=== PATIENT | male | born 1940 | race Two or more races ===

== ENCOUNTER 2019-02-13 08:43 | Inpatient (IN) | payer OTHER, MEDICARE | END 2019-02-27 16:50 | disposition home or self-care (01) | LOC: ICU WEST 02-19 00:30 → ER 08:43 → TELE-CENTR 02-14 00:32 → OVERFLOW 08:44 → TELE-CENTR 23:50 | PROC: B3151ZZ Fluoroscopy of Bilateral Common Carotid Arteries using Low Osmolar Contrast (ICD-10-PCS; principal; 2019-02-19 06:01) | PROC: B31R1ZZ Fluoroscopy of Intracranial Arteries using Low Osmolar Contrast (ICD-10-PCS; 2019-02-19 06:01) | PROC: B31K1ZZ Fluoroscopy of Bilateral Upper Extremity Arteries using Low Osmolar Contrast (ICD-10-PCS; 2019-02-19 06:01) | PROC: 02100Z9 Bypass Coronary Artery, One Artery from Left Internal Mammary, Open Approach (ICD-10-PCS; 2019-02-19 06:01) | PROC: 021209W Bypass Coronary Artery, Three Arteries from Aorta with Autologous Venous Tissue, Open Approach (ICD-10-PCS; 2019-02-19 06:01) | PROC: 06BQ0ZZ Excision of Left Saphenous Vein, Open Approach (ICD-10-PCS; 2019-02-19 06:01) | PROC: 06BP0ZZ Excision of Right Saphenous Vein, Open Approach (ICD-10-PCS; 2019-02-19 06:01) | PROC: 5A1935Z Respiratory Ventilation, Less than 24 Consecutive Hours (ICD-10-PCS; 2019-02-19 06:01) | PROC: 30233N1 Transfusion of Nonautologous Red Blood Cells into Peripheral Vein, Percutaneous Approach (ICD-10-PCS; 2019-02-19 06:01) | DX: I21.4 Non-ST elevation (NSTEMI) myocardial infarction (principal); I67.2 Cerebral atherosclerosis; E78.5 Hyperlipidemia, unspecified; E11.65 Type 2 diabetes mellitus with hyperglycemia; E11.9 Type 2 diabetes mellitus without complications; I25.10 Atherosclerotic heart disease of native coronary artery without angina pectoris; Z95.1 Presence of aortocoronary bypass graft ==

== ENCOUNTER 2020-05-18 15:56 | Emergency (ER) | payer OTHER ==
[~2020-05-18 15:56] MED LIST: ATOR20TA PO; METF-370 PO
[2020-05-18 17:03] LABS: Basophils # (auto) 0 10 ^3/uL (0-0.2); Basophils % (auto) 0.3 % (0.0-2.0); Eosinophils # (auto) 0 10 ^3/uL (0-0.8); Hematocrit 44.7 % (41.0-53.0); Hemoglobin 15.4 g/dL (13.5-17.5); Lymphocytes # (auto) 0.6 10 ^3/uL (0.4-5.4); Lymphocytes % (auto) 15.5 % (10.0-50.0); Mean Corpuscular Hemoglobin 31.6 pg (28.0-32.0); Mean Corpuscular Hgb Conc. 34.5 g/dL (32.0-36.0); Mean Corpuscular Volume 91.8 fL (80.0-100.0); Monocytes # (auto) 0.4 10 ^3/uL (0-1.3); Monocytes % (auto) 9.4 % (0.0-12.0); Neutrophils # (auto) 2.9 10 ^3/uL (1.6-8.6); Neutrophils % (auto) 74.8 % (37.0-80.0); Nucleated Red Blood Cells % 0.1 %; Platelet Count (auto) 168 10^3/uL (140-450); Red Blood Cells 4.87 10^6/uL (4.5-5.90); Red Cell Distribution Width 13.6 % (11.8-14.3); White Blood Cell 3.9 10^3/uL (4.4-10.8)
[2020-05-18 17:25] LABS: Albumin 3.6 g/dL (3.4-5.0); Anion Gap 7 (5-15); Blood Urea Nitrogen 24 mg/dL (7-18); Calcium 8.4 mg/dL (8.5-10.1); Carbon Dioxide 29 mmol/L (21-32); Chloride 91 mmol/L (98-107); Glucose 321 mg/dL (74-106); Magnesium 2.5 mg/dL (1.6-2.6); Potassium 4.5 mmol/L (3.5-5.1); Sodium 127 mmol/L (136-145)
[2020-05-18 17:32] LABS: Alanine Aminotransferase 30 U/L (16-61); Alkaline Phosphatase 63 U/L (45-117); Aspartate Aminotransferase 30 U/L (15-37); BUN/Creatinine Ratio 15.7; Bilirubin, Total 0.6 mg/dL (0.2-1.0); GFR African American 57 mL/min; GFR Non-African American 47 mL/min; Total Protein 7.5 g/dL (6.4-8.2)
[2020-05-18 18:06] VITALS: BP 99/65
[2020-05-18] MEDS ORDERED: TETANUS-DIPTH-ACEL PERTUSSIS 0.5ML SYR Tdap IM ONE (18:30)
[2020-05-18] MEDS ORDERED: BACITRACIN TOP OINT 1 UD PKG TOP ONE (18:30)
== END 2020-05-18 19:19 | disposition home or self-care (01) ==
LOC: ER 15:56
DX: S00.81XA Abrasion of other part of head, initial encounter (principal); E11.65 Type 2 diabetes mellitus with hyperglycemia; E11.21 Type 2 diabetes mellitus with diabetic nephropathy; E11.9 Type 2 diabetes mellitus without complications; I10 Essential (primary) hypertension; W19.XXXA Unspecified fall, initial encounter; Y93.89 Activity, other specified; Y92.89 Other specified places as the place of occurrence of the external cause; Y99.8 Other external cause status
CPT/HCPCS: 36415; 70450; 71046; 72125; 80053; 82962; 83735; 84484; 85025; 90471; 90715

== ENCOUNTER 2020-05-21 15:21 | Inpatient (IN) | payer MEDICARE, OTHER ==
[~2020-05-21] VITALS: Ht 167.6 cm; Wt 88.1 kg
[2020-05-21 17:02] LABS: Basophils # (auto) 0 10 ^3/uL (0-0.2); Basophils % (auto) 0.3 % (0.0-2.0); Eosinophils # (auto) 0 10 ^3/uL (0-0.8); Hematocrit 40.2 % (41.0-53.0); Hemoglobin 13.7 g/dL (13.5-17.5); Lymphocytes # (auto) 0.6 10 ^3/uL (0.4-5.4); Lymphocytes % (auto) 9.9 % (10.0-50.0); Mean Corpuscular Hemoglobin 31.2 pg (28.0-32.0); Mean Corpuscular Hgb Conc. 34.2 g/dL (32.0-36.0); Mean Corpuscular Volume 91.2 fL (80.0-100.0); Monocytes # (auto) 0.4 10 ^3/uL (0-1.3); Monocytes % (auto) 7.3 % (0.0-12.0); Neutrophils # (auto) 5.1 10 ^3/uL (1.6-8.6); Neutrophils % (auto) 82.5 % (37.0-80.0); Nucleated Red Blood Cells % 0.1 %; Platelet Count (auto) 217 10^3/uL (140-450); Red Cell Distribution Width 13.5 % (11.8-14.3); White Blood Cell 6.1 10^3/uL (4.4-10.8)
[2020-05-21 17:16] LABS: INR 1.03 (0.9-1.15); Partial Thromboplastin Time 28.2 sec (23.0-31.2)
[2020-05-21 17:19] LABS: Albumin 2.9 g/dL (3.4-5.0); Anion Gap 8 (5-15); Calcium 8.1 mg/dL (8.5-10.1); Carbon Dioxide 25 mmol/L (21-32); Chloride 97 mmol/L (98-107); Glucose 289 mg/dL (74-106); Magnesium 2.4 mg/dL (1.6-2.6); Potassium 4.5 mmol/L (3.5-5.1); Sodium 130 mmol/L (136-145)
[2020-05-21 17:25] LABS: Alanine Aminotransferase 35 U/L (16-61); Alkaline Phosphatase 54 U/L (45-117); Aspartate Aminotransferase 45 U/L (15-37); Bilirubin, Total 0.7 mg/dL (0.2-1.0); GFR African American 73 mL/min; GFR Non-African American 60 mL/min; Total Protein 6.8 g/dL (6.4-8.2)
[2020-05-21 17:53] LABS: BUN/Creatinine Ratio 23.6; Blood Urea Nitrogen 29 mg/dL (7-18)
[2020-05-21] MEDS ORDERED: levoFLOXacin 750MG 150 ML IV ONE (21:45)
[2020-05-21] MEDS ORDERED: ACETAMINOPHEN 325 MG TAB PO ONE (21:45)
[2020-05-21] MEDS ORDERED: SODIUM CHLORIDE 0.9% 1,000 ML IV ONE (21:45)
[2020-05-22 01:21] LABS: Urine Bacteria NONE SEEN /hpf (None Seen); Urine Blood 2+ /uL (Negative); Urine Mucus FEW (None Seen); Urine Specific Gravity 1.028 (1.001-1.035); Urine WBC 1 /hpf (0 - 3)
[2020-05-22] MEDS ORDERED: DOCUSATE SOD 100 MG CAP PO PRN (03:30)
[2020-05-22] MEDS ORDERED: NITROGLYCERIN 0.4 MG SL TAB SL PRN (03:30)
[2020-05-22] MEDS ORDERED: MORPHINE SULF INJ 2 MG/ML SYRINGE 1ML IV PRN (03:30)
[2020-05-22] MEDS ORDERED: ONDANSETRON HCL 4 MG/2 ML VIAL IV PRN (03:30)
[2020-05-22] MEDS ORDERED: DEXTROSE (50%) 50ML SYRG IV PRN (03:45)
[2020-05-22] MEDS: DOXYCYCLINE 100MG/250ML 250 ML IV SCH ×2 (03:49→21:27)
[2020-05-22] MEDS: DexAMETHasone SOD PHOS 10MG/1ML VIAL INJ IV SCH (03:50)
[2020-05-22 04:41] LABS: Basophils # (auto) 0 10 ^3/uL (0-0.2); Basophils % (auto) 0.5 % (0.0-2.0); Eosinophils # (auto) 0 10 ^3/uL (0-0.8); Eosinophils % (auto) 0.2 % (0.0-7.0); Lymphocytes # (auto) 0.8 10 ^3/uL (0.4-5.4); Lymphocytes % (auto) 13.3 % (10.0-50.0); Mean Corpuscular Hemoglobin 32.6 pg (28.0-32.0); Mean Corpuscular Volume 90.7 fL (80.0-100.0); Monocytes # (auto) 0.4 10 ^3/uL (0-1.3); Monocytes % (auto) 6.1 % (0.0-12.0); Neutrophils # (auto) 4.6 10 ^3/uL (1.6-8.6); Neutrophils % (auto) 79.9 % (37.0-80.0); Nucleated Red Blood Cells % 0.1 %; Platelet Count (auto) 210 10^3/uL (140-450); Red Cell Distribution Width 13.4 % (11.8-14.3); White Blood Cell 5.8 10^3/uL (4.4-10.8)
[2020-05-22 04:59] LABS: Albumin 2.6 g/dL (3.4-5.0); Calcium 8.1 mg/dL (8.5-10.1); Magnesium 2.4 mg/dL (1.6-2.6); Potassium 4.2 mmol/L (3.5-5.1)
[2020-05-22 05:01] LABS: BUN/Creatinine Ratio 20.4
[2020-05-22 05:04] LABS: Bilirubin, Total 0.6 mg/dL (0.2-1.0); Total Protein 6.8 g/dL (6.4-8.2)
[2020-05-22] MEDS: ACCU-CHEK COMFORT CURVE STRIP VI SCH ×4 (06:34→21:35)
[2020-05-22] MEDS: InsuLIN REG 1unit/0.01ml Soln (100units/ml) SC SCH ×4 (06:35→21:35)
[2020-05-22] MEDS: BUDESONIDE (INHALATION) 180 MCG IH IN SCH ×2 (06:43→22:24)
[2020-05-22] MEDS: ALBUTEROL SULF HFA 90MCG INH 200DOSE IN SCH ×3 (06:43→22:24)
[2020-05-22 07:26] VITALS: BP 117/54
[2020-05-22] MEDS: CHOLECALCIFEROL (VITD3) 2,000 UNIT CAP PO SCH (09:57)
[2020-05-22] MEDS: ASCORBIC ACID 1,000 MG TAB PO SCH (09:57)
[2020-05-22] MEDS: ZINC SULFATE 220mg CAP or TAB PO SCH (09:57)
[2020-05-22] MEDS: ENOXAPARIN SOD 40 MG/0.4 ML SYRINGE SC SCH (09:57)
[2020-05-22] MEDS ORDERED: ATOR10TA52 PO (10:16)
[2020-05-22] MEDS ORDERED: CHOL20007 PO (10:16)
[2020-05-22] MEDS ORDERED: FENO145T27 PO (10:16)
[2020-05-22] MEDS ORDERED: ENAL2.5T7 PO (10:16)
[2020-05-22] MEDS ORDERED: CARV3.1240 PO (10:16)
[2020-05-22 10:26] VITALS: BP 121/66
[2020-05-22 12:12] VITALS: BP 129/63
[2020-05-22] MEDS ORDERED: FUROSEMIDE 40 MG/4 ML VIAL IV ONE (13:00)
[2020-05-22 16:27] VITALS: BP 116/69
[2020-05-22 21:00] VITALS: BP 131/74
[2020-05-23 05:00] VITALS: BP 130/79
[2020-05-23 05:24] LABS: Basophils # (auto) 0 10 ^3/uL (0-0.2); Basophils % (auto) 0.1 % (0.0-2.0); Eosinophils # (auto) 0 10 ^3/uL (0-0.8); Hematocrit 38.5 % (41.0-53.0); Hemoglobin 13.5 g/dL (13.5-17.5); Lymphocytes # (auto) 0.7 10 ^3/uL (0.4-5.4); Mean Corpuscular Hemoglobin 31.5 pg (28.0-32.0); Mean Corpuscular Hgb Conc. 35.1 g/dL (32.0-36.0); Mean Corpuscular Volume 89.8 fL (80.0-100.0); Monocytes # (auto) 0.5 10 ^3/uL (0-1.3); Monocytes % (auto) 5.6 % (0.0-12.0); Neutrophils # (auto) 7.1 10 ^3/uL (1.6-8.6); Neutrophils % (auto) 86.3 % (37.0-80.0); Nucleated Red Blood Cells % 0.1 %; Platelet Count (auto) 279 10^3/uL (140-450); Red Blood Cells 4.29 10^6/uL (4.5-5.90); Red Cell Distribution Width 13.2 % (11.8-14.3); White Blood Cell 8.2 10^3/uL (4.4-10.8)
[2020-05-23] MEDS: ALBUTEROL SULF HFA 90MCG INH 200DOSE IN SCH ×3 (05:38→21:07)
[2020-05-23] MEDS: BUDESONIDE (INHALATION) 180 MCG IH IN SCH ×2 (05:38→21:07)
[2020-05-23 05:51] LABS: Albumin 2.7 g/dL (3.4-5.0); Calcium 8.5 mg/dL (8.5-10.1); Magnesium 2.6 mg/dL (1.6-2.6); Potassium 3.9 mmol/L (3.5-5.1)
[2020-05-23 05:59] LABS: BUN/Creatinine Ratio 26.9; Bilirubin, Total 0.6 mg/dL (0.2-1.0); CRP High Sensitivity 6.64 mg/dL (< 0.3); Total Protein 6.9 g/dL (6.4-8.2)
[2020-05-23] MEDS: ACCU-CHEK COMFORT CURVE STRIP VI SCH ×4 (06:32→21:20)
[2020-05-23] MEDS: InsuLIN REG 1unit/0.01ml Soln (100units/ml) SC SCH ×4 (06:32→21:13)
[2020-05-23 09:00] VITALS: BP 120/81
[2020-05-23] MEDS: FUROSEMIDE 40 MG/4 ML VIAL IV SCH (09:53)
[2020-05-23] MEDS: DexAMETHasone SOD PHOS 10MG/1ML VIAL INJ IV SCH (09:53)
[2020-05-23] MEDS: CHOLECALCIFEROL (VITD3) 2,000 UNIT CAP PO SCH (09:54)
[2020-05-23] MEDS: DOXYCYCLINE 100MG/250ML 250 ML IV SCH ×2 (09:54→21:20)
[2020-05-23] MEDS: ENOXAPARIN SOD 40 MG/0.4 ML SYRINGE SC SCH (09:54)
[2020-05-23] MEDS: ASCORBIC ACID 1,000 MG TAB PO SCH (09:54)
[2020-05-23] MEDS: ZINC SULFATE 220mg CAP or TAB PO SCH (09:54)
[2020-05-23 13:00] VITALS: BP 115/71
[2020-05-23 17:00] VITALS: BP 119/75
[2020-05-23] MEDS: INSULIN 70/30 1unit/0.01ml Susp (100units/ml) SC SCH (21:14)
[2020-05-23 22:09] VITALS: BP 115/61
[2020-05-24] VITALS (7 sets, daily range): BP systolic 110–141; BP diastolic 66–88
[2020-05-24] MEDS: ALBUTEROL SULF HFA 90MCG INH 200DOSE IN SCH ×3 (06:02→20:31)
[2020-05-24] MEDS: BUDESONIDE (INHALATION) 180 MCG IH IN SCH ×2 (06:02→20:31)
[2020-05-24] MEDS: InsuLIN REG 1unit/0.01ml Soln (100units/ml) SC SCH ×4 (06:31→21:44)
[2020-05-24] MEDS: ACCU-CHEK COMFORT CURVE STRIP VI SCH ×4 (06:38→21:44)
[2020-05-24] MEDS: DexAMETHasone SOD PHOS 10MG/1ML VIAL INJ IV SCH (10:41)
[2020-05-24] MEDS: DOXYCYCLINE 100MG/250ML 250 ML IV SCH (10:41)
[2020-05-24] MEDS: ENOXAPARIN SOD 40 MG/0.4 ML SYRINGE SC SCH (10:41)
[2020-05-24] MEDS: FUROSEMIDE 40 MG/4 ML VIAL IV SCH (10:41)
[2020-05-24] MEDS: CHOLECALCIFEROL (VITD3) 2,000 UNIT CAP PO SCH (10:42)
[2020-05-24] MEDS: ZINC SULFATE 220mg CAP or TAB PO SCH (10:42)
[2020-05-24] MEDS: ASCORBIC ACID 1,000 MG TAB PO SCH (10:42)
[2020-05-24] MEDS: INSULIN 70/30 1unit/0.01ml Susp (100units/ml) SC SCH ×2 (10:58→21:43)
[2020-05-24] MEDS: ACETAMINOPHEN 500 MG TAB PO PRN (11:32)
[2020-05-24] MEDS ORDERED: REMDESIVIR 200 MG in NS 210ml LOADING DOSE ADULT IV ONE (17:00)
[2020-05-25] VITALS (10 sets, daily range): BP systolic 97–133; BP diastolic 52–80
[2020-05-25] MEDS: DOXYCYCLINE 100MG/250ML 250 ML IV SCH ×3 (01:33→22:13)
[2020-05-25] MEDS: ALBUTEROL SULF HFA 90MCG INH 200DOSE IN SCH ×3 (06:10→21:51)
[2020-05-25] MEDS: BUDESONIDE (INHALATION) 180 MCG IH IN SCH ×2 (06:11→21:51)
[2020-05-25] MEDS: InsuLIN REG 1unit/0.01ml Soln (100units/ml) SC SCH ×4 (06:31→22:20)
[2020-05-25] MEDS: ACCU-CHEK COMFORT CURVE STRIP VI SCH ×4 (06:32→22:13)
[2020-05-25] MEDS: INSULIN 70/30 1unit/0.01ml Susp (100units/ml) SC SCH ×2 (09:47→22:19)
[2020-05-25] MEDS: FUROSEMIDE 40 MG/4 ML VIAL IV SCH (09:56)
[2020-05-25] MEDS: DexAMETHasone SOD PHOS 10MG/1ML VIAL INJ IV SCH (09:56)
[2020-05-25] MEDS: ZINC SULFATE 220mg CAP or TAB PO SCH (09:56)
[2020-05-25] MEDS: ASCORBIC ACID 1,000 MG TAB PO SCH (09:56)
[2020-05-25] MEDS: CHOLECALCIFEROL (VITD3) 2,000 UNIT CAP PO SCH (09:56)
[2020-05-25] MEDS: ENOXAPARIN SOD 40 MG/0.4 ML SYRINGE SC SCH (09:57)
[2020-05-25 11:23] LABS: Albumin 2.6 g/dL (3.4-5.0); Calcium 8.7 mg/dL (8.5-10.1); Potassium 3.9 mmol/L (3.5-5.1)
[2020-05-25 11:28] LABS: BUN/Creatinine Ratio 26.8; Bilirubin, Total 0.8 mg/dL (0.2-1.0); Total Protein 7.4 g/dL (6.4-8.2)
[2020-05-25] MEDS: REMDESIVIR 100mg in NS 230ml DAILYx4DAYS (NO VENT) IV SCH (16:49)
[2020-05-26 04:58] VITALS: BP 126/77
[2020-05-26 06:00] LABS: Basophils # (auto) 0 10 ^3/uL (0-0.2); Basophils % (auto) 0.5 % (0.0-2.0); Eosinophils # (auto) 0 10 ^3/uL (0-0.8); Eosinophils % (auto) 0.3 % (0.0-7.0); Hematocrit 43.2 % (41.0-53.0); Hemoglobin 14.9 g/dL (13.5-17.5); Lymphocytes # (auto) 0.7 10 ^3/uL (0.4-5.4); Lymphocytes % (auto) 9.2 % (10.0-50.0); Mean Corpuscular Hemoglobin 31.4 pg (28.0-32.0); Mean Corpuscular Hgb Conc. 34.5 g/dL (32.0-36.0); Monocytes # (auto) 0.6 10 ^3/uL (0-1.3); Monocytes % (auto) 7.5 % (0.0-12.0); Neutrophils # (auto) 6.7 10 ^3/uL (1.6-8.6); Neutrophils % (auto) 82.5 % (37.0-80.0); Nucleated Red Blood Cells % 0.1 %; Platelet Count (auto) 353 10^3/uL (140-450); Red Blood Cells 4.75 10^6/uL (4.5-5.90); Red Cell Distribution Width 13.4 % (11.8-14.3); White Blood Cell 8.1 10^3/uL (4.4-10.8)
[2020-05-26] MEDS: BUDESONIDE (INHALATION) 180 MCG IH IN SCH ×2 (06:10→21:29)
[2020-05-26] MEDS: ALBUTEROL SULF HFA 90MCG INH 200DOSE IN SCH ×3 (06:15→21:29)
[2020-05-26 06:23] LABS: Albumin 2.5 g/dL (3.4-5.0); Calcium 8.5 mg/dL (8.5-10.1); Potassium 3.5 mmol/L (3.5-5.1)
[2020-05-26 06:32] LABS: BUN/Creatinine Ratio 27.9; Bilirubin, Total 0.8 mg/dL (0.2-1.0); CRP High Sensitivity 11.3 mg/dL (< 0.3); Total Protein 6.9 g/dL (6.4-8.2)
[2020-05-26] MEDS: ACCU-CHEK COMFORT CURVE STRIP VI SCH ×4 (06:56→22:38)
[2020-05-26] MEDS: InsuLIN REG 1unit/0.01ml Soln (100units/ml) SC SCH ×4 (06:57→22:42)
[2020-05-26 09:00] VITALS: BP 117/71
[2020-05-26] MEDS: INSULIN 70/30 1unit/0.01ml Susp (100units/ml) SC SCH ×2 (10:00→22:43)
[2020-05-26] MEDS: FUROSEMIDE 40 MG/4 ML VIAL IV SCH (10:43)
[2020-05-26] MEDS: DexAMETHasone SOD PHOS 10MG/1ML VIAL INJ IV SCH (10:43)
[2020-05-26] MEDS: ZINC SULFATE 220mg CAP or TAB PO SCH (10:44)
[2020-05-26] MEDS: DOXYCYCLINE 100MG/250ML 250 ML IV SCH ×2 (10:44→22:38)
[2020-05-26] MEDS: ENOXAPARIN SOD 40 MG/0.4 ML SYRINGE SC SCH (10:44)
[2020-05-26] MEDS: ASCORBIC ACID 1,000 MG TAB PO SCH (10:44)
[2020-05-26] MEDS: CHOLECALCIFEROL (VITD3) 2,000 UNIT CAP PO SCH (10:44)
[2020-05-26 13:00] VITALS: BP 119/75
[2020-05-26 17:00] VITALS: BP 104/61
[2020-05-26] MEDS: REMDESIVIR 100mg in NS 230ml DAILYx4DAYS (NO VENT) IV SCH (17:07)
[2020-05-26 22:00] VITALS: BP 125/75
[2020-05-27] VITALS (9 sets, daily range): BP systolic 114–129; BP diastolic 71–81
[2020-05-27] MEDS: ALBUTEROL SULF HFA 90MCG INH 200DOSE IN SCH ×3 (05:53→22:51)
[2020-05-27] MEDS: BUDESONIDE (INHALATION) 180 MCG IH IN SCH ×2 (05:53→22:51)
[2020-05-27 06:18] LABS: Albumin 2.2 g/dL (3.4-5.0); Anion Gap 5 (5-15); Blood Urea Nitrogen 30 mg/dL (7-18); Calcium 8.5 mg/dL (8.5-10.1); Carbon Dioxide 31 mmol/L (21-32); Chloride 99 mmol/L (98-107); Glucose 161 mg/dL (74-106); Potassium 3.7 mmol/L (3.5-5.1); Sodium 135 mmol/L (136-145)
[2020-05-27 06:31] LABS: Alanine Aminotransferase 28 U/L (16-61); Alkaline Phosphatase 72 U/L (45-117); Aspartate Aminotransferase 30 U/L (15-37); BUN/Creatinine Ratio 32.3; GFR African American 101 mL/min; GFR Non-African American 83 mL/min; Lactate Dehydrogenase 499 U/L (87-241); Total Protein 6.9 g/dL (6.4-8.2)
[2020-05-27 06:35] LABS: CRP High Sensitivity > 19 mg/dL (< 0.3)
[2020-05-27] MEDS: ACCU-CHEK COMFORT CURVE STRIP VI SCH ×4 (06:40→22:37)
[2020-05-27] MEDS: InsuLIN REG 1unit/0.01ml Soln (100units/ml) SC SCH ×4 (06:45→23:05)
[2020-05-27] MEDS: DexAMETHasone SOD PHOS 10MG/1ML VIAL INJ IV SCH (09:40)
[2020-05-27] MEDS: ENOXAPARIN SOD 80 MG/0.8ML SYRINGE SC SCH ×2 (09:40→22:37)
[2020-05-27] MEDS: FUROSEMIDE 40 MG/4 ML VIAL IV SCH (09:41)
[2020-05-27] MEDS: CHOLECALCIFEROL (VITD3) 2,000 UNIT CAP PO SCH (09:42)
[2020-05-27] MEDS: ZINC SULFATE 220mg CAP or TAB PO SCH (09:42)
[2020-05-27] MEDS: ASCORBIC ACID 1,000 MG TAB PO SCH (09:42)
[2020-05-27] MEDS: INSULIN 70/30 1unit/0.01ml Susp (100units/ml) SC SCH ×2 (10:00→23:05)
[2020-05-27] MEDS ORDERED: PIPERACILLIN-TAZOB 3.375GM 100 ML IV SCH (14:00)
[2020-05-27] MEDS: REMDESIVIR 100mg in NS 230ml DAILYx4DAYS (NO VENT) IV SCH (17:12)
[2020-05-27] MEDS: PIPERACILLIN-TAZOB 3.375GM 100 ML IV SCH (18:44)
[2020-05-28] VITALS (11 sets, daily range): BP systolic 103–129; BP diastolic 67–80
[2020-05-28] MEDS: PIPERACILLIN-TAZOB 3.375GM 100 ML IV SCH ×3 (01:55→18:20)
[2020-05-28] MEDS: ACCU-CHEK COMFORT CURVE STRIP VI SCH ×4 (06:05→23:52)
[2020-05-28] MEDS: InsuLIN REG 1unit/0.01ml Soln (100units/ml) SC SCH ×4 (06:06→23:52)
[2020-05-28] MEDS: ALBUTEROL SULF HFA 90MCG INH 200DOSE IN SCH ×3 (07:07→20:37)
[2020-05-28] MEDS: BUDESONIDE (INHALATION) 180 MCG IH IN SCH ×2 (07:07→20:37)
[2020-05-28] MEDS: INSULIN 70/30 1unit/0.01ml Susp (100units/ml) SC SCH ×2 (10:00→23:51)
[2020-05-28] MEDS: ZINC SULFATE 220mg CAP or TAB PO SCH (10:00)
[2020-05-28] MEDS: ASCORBIC ACID 1,000 MG TAB PO SCH (10:00)
[2020-05-28] MEDS: DexAMETHasone SOD PHOS 10MG/1ML VIAL INJ IV SCH (10:34)
[2020-05-28] MEDS: FUROSEMIDE 40 MG/4 ML VIAL IV SCH (10:34)
[2020-05-28] MEDS: CHOLECALCIFEROL (VITD3) 2,000 UNIT CAP PO SCH (10:34)
[2020-05-28] MEDS: ENOXAPARIN SOD 80 MG/0.8ML SYRINGE SC SCH ×2 (10:35→23:52)
[2020-05-28] MEDS: REMDESIVIR 100mg in NS 230ml DAILYx4DAYS (NO VENT) IV SCH (16:58)
[2020-05-29] VITALS (14 sets, daily range): BP systolic 98–128; BP diastolic 64–88
[2020-05-29] MEDS: PIPERACILLIN-TAZOB 3.375GM 100 ML IV SCH ×3 (04:16→18:39)
[2020-05-29] MEDS: ACCU-CHEK COMFORT CURVE STRIP VI SCH ×4 (06:31→21:51)
[2020-05-29] MEDS: ACETAMINOPHEN 500 MG TAB PO PRN (06:31)
[2020-05-29] MEDS: InsuLIN REG 1unit/0.01ml Soln (100units/ml) SC SCH ×4 (06:33→21:51)
[2020-05-29] MEDS: BUDESONIDE (INHALATION) 180 MCG IH IN SCH ×2 (06:40→22:47)
[2020-05-29] MEDS: ALBUTEROL SULF HFA 90MCG INH 200DOSE IN SCH ×3 (06:40→22:47)
[2020-05-29] MEDS: FUROSEMIDE 40 MG/4 ML VIAL IV SCH (09:46)
[2020-05-29] MEDS: DexAMETHasone SOD PHOS 10MG/1ML VIAL INJ IV SCH (09:46)
[2020-05-29] MEDS: ZINC SULFATE 220mg CAP or TAB PO SCH (09:47)
[2020-05-29] MEDS: CHOLECALCIFEROL (VITD3) 2,000 UNIT CAP PO SCH (09:47)
[2020-05-29] MEDS: ENOXAPARIN SOD 80 MG/0.8ML SYRINGE SC SCH ×2 (09:47→21:50)
[2020-05-29] MEDS: ASCORBIC ACID 1,000 MG TAB PO SCH (09:47)
[2020-05-29] MEDS: INSULIN 70/30 1unit/0.01ml Susp (100units/ml) SC SCH ×2 (10:17→21:50)
[2020-05-29] MEDS ORDERED: POTASSIUM CHL 20 Meq TABLET PO ONE (13:45)
[2020-05-29] MEDS ORDERED: PANTOPRAZOLE 40 MG TAB PO ONE (13:45)
[2020-05-29] MEDS: BACLOFEN 10 MG TAB PO SCH ×2 (14:30→21:50)
[2020-05-30] VITALS (38 sets, daily range): BP systolic 70–171; BP diastolic 46–88
[2020-05-30] MEDS: PIPERACILLIN-TAZOB 3.375GM 100 ML IV SCH ×3 (01:58→18:26)
[2020-05-30 03:21] LABS: Basophils # (auto) 0 10 ^3/uL (0-0.2); Basophils % (auto) 0.4 % (0.0-2.0); Eosinophils # (auto) 0 10 ^3/uL (0-0.8); Hematocrit 42.1 % (41.0-53.0); Hemoglobin 14.3 g/dL (13.5-17.5); Lymphocytes # (auto) 0.7 10 ^3/uL (0.4-5.4); Mean Corpuscular Hemoglobin 31.1 pg (28.0-32.0); Mean Corpuscular Hgb Conc. 33.9 g/dL (32.0-36.0); Mean Corpuscular Volume 91.8 fL (80.0-100.0); Monocytes # (auto) 0.7 10 ^3/uL (0-1.3); Neutrophils # (auto) 10.2 10 ^3/uL (1.6-8.6); Neutrophils % (auto) 87.6 % (37.0-80.0); Nucleated Red Blood Cells % 0.1 %; Platelet Count (auto) 379 10^3/uL (140-450); Red Blood Cells 4.59 10^6/uL (4.5-5.90); Red Cell Distribution Width 13.4 % (11.8-14.3); White Blood Cell 11.6 10^3/uL (4.4-10.8)
[2020-05-30 03:42] LABS: Calcium 8.5 mg/dL (8.5-10.1); Potassium 4.1 mmol/L (3.5-5.1)
[2020-05-30 03:50] LABS: BUN/Creatinine Ratio 36.9; Bilirubin, Total 0.9 mg/dL (0.2-1.0); CRP High Sensitivity 6.53 mg/dL (< 0.3); Total Protein 6.7 g/dL (6.4-8.2)
[2020-05-30] MEDS: BACLOFEN 10 MG TAB PO SCH ×3 (05:56→20:52)
[2020-05-30] MEDS: ACCU-CHEK COMFORT CURVE STRIP VI SCH ×4 (06:25→20:54)
[2020-05-30] MEDS: InsuLIN REG 1unit/0.01ml Soln (100units/ml) SC SCH ×4 (06:25→20:54)
[2020-05-30] MEDS: ALBUTEROL SULF HFA 90MCG INH 200DOSE IN SCH ×3 (07:08→21:00)
[2020-05-30] MEDS: BUDESONIDE (INHALATION) 180 MCG IH IN SCH ×2 (07:08→20:59)
[2020-05-30] MEDS ORDERED: ACETAMINOPHEN 500 MG TAB PO PRN (09:00)
[2020-05-30] MEDS: INSULIN 70/30 1unit/0.01ml Susp (100units/ml) SC SCH ×2 (10:00→20:53)
[2020-05-30] MEDS: ASCORBIC ACID 1,000 MG TAB PO SCH (10:00)
[2020-05-30] MEDS: ENOXAPARIN SOD 80 MG/0.8ML SYRINGE SC SCH ×2 (10:32→20:54)
[2020-05-30] MEDS: DexAMETHasone SOD PHOS 10MG/1ML VIAL INJ IV SCH (10:32)
[2020-05-30] MEDS: FUROSEMIDE 40 MG/4 ML VIAL IV SCH (10:33)
[2020-05-30] MEDS: PANTOPRAZOLE 40 MG TAB PO SCH (10:33)
[2020-05-30] MEDS: CHOLECALCIFEROL (VITD3) 2,000 UNIT CAP PO SCH (10:33)
[2020-05-30] MEDS: POTASSIUM CHL 20 Meq TABLET PO SCH (10:34)
[2020-05-30] MEDS: ZINC SULFATE 220mg CAP or TAB PO SCH (10:34)
[2020-05-30] MEDS ORDERED: NOREPINEPHRINE 8 MG/250ML KIT 250 ML IV SCH (18:00)
[2020-05-30] MEDS ORDERED: NOREPINEPHRINE 8 MG/250ML KIT 250 ML IV ONE (18:01)
[2020-05-30 20:35] LABS: Albumin 2.1 g/dL (3.4-5.0); Anion Gap 11 (5-15); Blood Urea Nitrogen 37 mg/dL (7-18); Calcium 8.6 mg/dL (8.5-10.1); Carbon Dioxide 27 mmol/L (21-32); Chloride 98 mmol/L (98-107); Glucose 116 mg/dL (74-106); Potassium 3.8 mmol/L (3.5-5.1); Sodium 136 mmol/L (136-145)
[2020-05-30 20:41] LABS: Alanine Aminotransferase 25 U/L (16-61); Alkaline Phosphatase 84 U/L (45-117); Aspartate Aminotransferase 31 U/L (15-37); BUN/Creatinine Ratio 39.4; GFR African American 100 mL/min; GFR Non-African American 82 mL/min; Total Protein 6.7 g/dL (6.4-8.2)
[2020-05-31] VITALS (38 sets, daily range): BP systolic 91–144; BP diastolic 60–82
[2020-05-31] MEDS: PIPERACILLIN-TAZOB 3.375GM 100 ML IV SCH ×3 (02:00→22:29)
[2020-05-31] MEDS: BUDESONIDE (INHALATION) 180 MCG IH IN SCH ×2 (06:04→22:14)
[2020-05-31] MEDS: ALBUTEROL SULF HFA 90MCG INH 200DOSE IN SCH ×3 (06:04→22:14)
[2020-05-31] MEDS: BACLOFEN 10 MG TAB PO SCH ×3 (06:44→22:28)
[2020-05-31] MEDS: ACCU-CHEK COMFORT CURVE STRIP VI SCH ×4 (06:44→22:30)
[2020-05-31] MEDS: InsuLIN REG 1unit/0.01ml Soln (100units/ml) SC SCH ×4 (06:45→22:28)
[2020-05-31] MEDS: DexAMETHasone SOD PHOS 10MG/1ML VIAL INJ IV SCH (10:38)
[2020-05-31] MEDS: ZINC SULFATE 220mg CAP or TAB PO SCH (10:39)
[2020-05-31] MEDS: ASCORBIC ACID 1,000 MG TAB PO SCH (10:39)
[2020-05-31] MEDS: POTASSIUM CHL 20 Meq TABLET PO SCH (10:40)
[2020-05-31] MEDS: ENOXAPARIN SOD 80 MG/0.8ML SYRINGE SC SCH ×2 (10:40→22:28)
[2020-05-31] MEDS: PANTOPRAZOLE 40 MG TAB PO SCH (10:40)
[2020-05-31] MEDS: CHOLECALCIFEROL (VITD3) 2,000 UNIT CAP PO SCH (10:40)
[2020-05-31] MEDS: FUROSEMIDE 40 MG/4 ML VIAL IV SCH (10:42)
[2020-05-31] MEDS: INSULIN 70/30 1unit/0.01ml Susp (100units/ml) SC SCH ×2 (11:37→22:27)
[2020-06-01] VITALS (12 sets, daily range): BP systolic 90–123; BP diastolic 60–81
[2020-06-01] MEDS: PIPERACILLIN-TAZOB 3.375GM 100 ML IV SCH ×3 (02:23→18:10)
[2020-06-01] MEDS: BACLOFEN 10 MG TAB PO SCH ×3 (06:00→22:29)
[2020-06-01] MEDS: InsuLIN REG 1unit/0.01ml Soln (100units/ml) SC SCH ×4 (06:27→22:33)
[2020-06-01] MEDS: ACCU-CHEK COMFORT CURVE STRIP VI SCH ×4 (06:29→22:29)
[2020-06-01] MEDS: BUDESONIDE (INHALATION) 180 MCG IH IN SCH (07:00)
[2020-06-01] MEDS: ALBUTEROL SULF HFA 90MCG INH 200DOSE IN SCH ×2 (07:00→14:10)
[2020-06-01] MEDS: FUROSEMIDE 40 MG/4 ML VIAL IV SCH (09:53)
[2020-06-01] MEDS: ZINC SULFATE 220mg CAP or TAB PO SCH (09:53)
[2020-06-01] MEDS: POTASSIUM CHL 20 Meq TABLET PO SCH (09:53)
[2020-06-01] MEDS: DexAMETHasone SOD PHOS 10MG/1ML VIAL INJ IV SCH (09:53)
[2020-06-01] MEDS: PANTOPRAZOLE 40 MG TAB PO SCH (09:53)
[2020-06-01] MEDS: CHOLECALCIFEROL (VITD3) 2,000 UNIT CAP PO SCH (09:54)
[2020-06-01] MEDS: ASCORBIC ACID 1,000 MG TAB PO SCH (10:04)
[2020-06-01] MEDS: ENOXAPARIN SOD 80 MG/0.8ML SYRINGE SC SCH ×2 (10:04→22:30)
[2020-06-01] MEDS: INSULIN 70/30 1unit/0.01ml Susp (100units/ml) SC SCH ×2 (10:04→22:33)
[2020-06-02] VITALS (53 sets, daily range): BP systolic 78–118; BP diastolic 46–80
[2020-06-02] MEDS: ALBUTEROL SULF HFA 90MCG INH 200DOSE IN SCH (00:13)
[2020-06-02] MEDS: BUDESONIDE (INHALATION) 180 MCG IH IN SCH (00:14)
[2020-06-02] MEDS: PIPERACILLIN-TAZOB 3.375GM 100 ML IV SCH ×3 (04:36→18:30)
[2020-06-02] MEDS: BACLOFEN 10 MG TAB PO SCH ×2 (06:35→14:00)
[2020-06-02] MEDS: InsuLIN REG 1unit/0.01ml Soln (100units/ml) SC SCH ×4 (06:36→23:40)
[2020-06-02] MEDS: ENOXAPARIN SOD 80 MG/0.8ML SYRINGE SC SCH ×2 (10:30→22:00)
[2020-06-02] MEDS: FUROSEMIDE 40 MG/4 ML VIAL IV SCH (10:30)
[2020-06-02] MEDS: PANTOPRAZOLE 40 MG TAB PO SCH (10:30)
[2020-06-02] MEDS: DexAMETHasone SOD PHOS 10MG/1ML VIAL INJ IV SCH (10:30)
[2020-06-02] MEDS: POTASSIUM CHL 20 Meq TABLET PO SCH (10:30)
[2020-06-02] MEDS: ASCORBIC ACID 1,000 MG TAB PO SCH (10:30)
[2020-06-02] MEDS: ZINC SULFATE 220mg CAP or TAB PO SCH (10:30)
[2020-06-02] MEDS: CHOLECALCIFEROL (VITD3) 2,000 UNIT CAP PO SCH (10:30)
[2020-06-02] MEDS: INSULIN 70/30 1unit/0.01ml Susp (100units/ml) SC SCH ×2 (10:36→23:40)
[2020-06-02] MEDS ORDERED: ETOMIDATE (2MG/ML) 20ML VIAL IV ONE (11:11)
[2020-06-02] MEDS ORDERED: ROCURONIUM 10MG/ML 10ML VIAL IV ONE (11:11)
[2020-06-02] MEDS: fentaNYL Drip 2500mCg/250mlNS 250 ML IV SCH (11:40)
[2020-06-02] MEDS: PROPOFOL 100 ML IV SCH (11:40)
[2020-06-02] MEDS ORDERED: MIDAZOLAM DRIP 50 mg/50mL 50 ML IV ONE ×2 (11:42→12:16)
[2020-06-02] MEDS ORDERED: fentaNYL Drip 2500mCg/250mlNS 250 ML IV ONE (11:42)
[2020-06-02] MEDS: ACCU-CHEK COMFORT CURVE STRIP VI SCH ×3 (12:00→23:37)
[2020-06-02] MEDS ORDERED: ALBUTEROL SULF 2.5 MG/0.5ML(0.5%) NEB SOLN ONE (13:45)
[2020-06-02] MEDS: NOREPINEPHRINE 8 MG/250ML KIT 250 ML IV SCH ×2 (18:30→23:15)
[2020-06-02] MEDS ORDERED: PHENYLEPHRINE IV 250 ML IV ONE (18:39)
[2020-06-02] MEDS: MIDAZOLAM DRIP 50 mg/50mL 50 ML IV SCH ×2 (18:45→23:14)
[2020-06-02] MEDS: PHENYLEPHRINE IV 250 ML IV SCH ×2 (19:00→23:14)
[2020-06-02 21:18] LABS: INR 1.62 (0.9-1.15)
[2020-06-02] MEDS ORDERED: IPRATROPIUM BROM 0.5 MG/2.5ML INH SOL NEB SCH (22:00)
[2020-06-02] MEDS: ALBUTEROL SULF 2.5 MG/0.5ML(0.5%) NEB SOLN NEB SCH (22:01)
[2020-06-02] MEDS: BUDESONIDE (INHALATION) 0.5 MG/2 ML NEB NEB SCH (22:01)
[2020-06-02 23:22] LABS: Hematocrit 46.7 % (41.0-53.0); Hemoglobin 15.3 g/dL (13.5-17.5); Mean Corpuscular Hgb Conc. 32.9 g/dL (32.0-36.0); Mean Corpuscular Volume 94.3 fL (80.0-100.0); Platelet Count (auto) 326 10^3/uL (140-450); Red Blood Cells 4.95 10^6/uL (4.5-5.90); Red Cell Distribution Width 13.8 % (11.8-14.3); White Blood Cell 20.7 10^3/uL (4.4-10.8)
[2020-06-02 23:26] LABS: Basophils % (manual) 0 (0.0-2.0); Blast Cells 0; Eosinophils % (manual) 0 (0-7); Myelocytes % 0; Promyelocytes % 0; Reactive Lymphocytes 0
[2020-06-03] VITALS (99 sets, daily range): BP systolic 73–175; BP diastolic 31–85
[2020-06-03] MEDS: fentaNYL Drip 2500mCg/250mlNS 250 ML IV SCH ×2 (01:47→15:35)
[2020-06-03 01:55] LABS: Albumin 1.7 g/dL (3.4-5.0); BUN/Creatinine Ratio 22.8; Calcium 7.7 mg/dL (8.5-10.1)
[2020-06-03 01:58] LABS: Bilirubin, Total 0.9 mg/dL (0.2-1.0); Potassium 5.6 mmol/L (3.5-5.1); Total Protein 6.5 g/dL (6.4-8.2)
[2020-06-03] MEDS: PIPERACILLIN-TAZOB 3.375GM 100 ML IV SCH ×3 (02:12→19:01)
[2020-06-03] MEDS ORDERED: InsuLIN REG 1unit/0.01ml Soln (100units/ml) IV ONE (02:15)
[2020-06-03] MEDS ORDERED: DEXTROSE (50%) 50ML SYRG IV ONE (02:15)
[2020-06-03 02:30] LABS: CRP High Sensitivity 15.8 mg/dL (< 0.3)
[2020-06-03] MEDS: MIDAZOLAM DRIP 50 mg/50mL 50 ML IV SCH ×5 (02:32→17:33)
[2020-06-03] MEDS: NOREPINEPHRINE 8 MG/250ML KIT 250 ML IV SCH ×5 (04:21→19:00)
[2020-06-03 05:12] LABS: Band Neutrophils % (manual) 9; Lymphocytes % (manual) 4 (10.0-50.0); Metamyelocytes % 1; Monocytes % (manual) 5 (0-12)
[2020-06-03] MEDS: ACCU-CHEK COMFORT CURVE STRIP VI SCH ×4 (06:02→22:00)
[2020-06-03] MEDS: InsuLIN REG 1unit/0.01ml Soln (100units/ml) SC SCH ×4 (06:03→21:49)
[2020-06-03] MEDS: IPRATROPIUM BROM 0.5 MG/2.5ML INH SOL NEB SCH ×3 (06:15→22:43)
[2020-06-03] MEDS: BUDESONIDE (INHALATION) 0.5 MG/2 ML NEB NEB SCH ×2 (06:15→22:43)
[2020-06-03] MEDS: ALBUTEROL SULF 2.5 MG/0.5ML(0.5%) NEB SOLN NEB SCH ×3 (06:15→22:43)
[2020-06-03] MEDS: PHENYLEPHRINE IV 250 ML IV SCH ×2 (06:22→19:45)
[2020-06-03 06:36] LABS: Hematocrit 41.7 % (41.0-53.0); Hemoglobin 13.7 g/dL (13.5-17.5); Mean Corpuscular Hemoglobin 31.1 pg (28.0-32.0); Mean Corpuscular Hgb Conc. 32.8 g/dL (32.0-36.0); Mean Corpuscular Volume 94.7 fL (80.0-100.0); Platelet Count (auto) 205 10^3/uL (140-450); Red Cell Distribution Width 13.5 % (11.8-14.3); White Blood Cell 28.8 10^3/uL (4.4-10.8)
[2020-06-03 06:52] LABS: Basophils % (manual) 0 (0.0-2.0); Blast Cells 0; Eosinophils % (manual) 0 (0-7); Metamyelocytes % 0; Myelocytes % 0; Promyelocytes % 0; Reactive Lymphocytes 0
[2020-06-03 07:26] LABS: Albumin 1.6 g/dL (3.4-5.0); BUN/Creatinine Ratio 23.3; Bilirubin, Total 0.9 mg/dL (0.2-1.0); Calcium 7.4 mg/dL (8.5-10.1)
[2020-06-03 07:34] LABS: Potassium 5.8 mmol/L (3.5-5.1)
[2020-06-03 07:41] LABS: Band Neutrophils % (manual) 14; Lymphocytes % (manual) 1 (10.0-50.0); Monocytes % (manual) 1 (0-12)
[2020-06-03] MEDS ORDERED: SODIUM BICARBONATE 8.4 % INJ 50ML VIAL IV ONE (09:30)
[2020-06-03] MEDS ORDERED: DEXTROSE (50%) 50ML SYRG IV PRN (09:45)
[2020-06-03] MEDS ORDERED: POTASSIUM EFFERVESENT TAB 25 MEQ GT SCH (10:00)
[2020-06-03] MEDS: PANTOPRAZOLE 40 MG TAB PO SCH (10:00)
[2020-06-03] MEDS: FUROSEMIDE 40 MG/4 ML VIAL IV SCH (10:45)
[2020-06-03] MEDS: DexAMETHasone SOD PHOS 10MG/1ML VIAL INJ IV SCH (10:45)
[2020-06-03] MEDS: ENOXAPARIN SOD 80 MG/0.8ML SYRINGE SC SCH ×2 (10:45→22:00)
[2020-06-03] MEDS: INSULIN 70/30 1unit/0.01ml Susp (100units/ml) SC SCH ×2 (10:45→22:00)
[2020-06-03] MEDS: ASCORBIC ACID 1,000 MG TAB PO SCH (10:45)
[2020-06-03] MEDS: ZINC SULFATE 220mg CAP or TAB PO SCH (10:45)
[2020-06-03] MEDS: CHOLECALCIFEROL (VITD3) 2,000 UNIT CAP PO SCH (10:45)
[2020-06-03] MEDS: PROPOFOL 100 ML IV SCH (11:40)
[2020-06-03] MEDS: SODIUM BICARBONATE 50ML VIAL 75 ML in SOD CHL 0.45% 1,000 ML IV SCH (11:45)
[2020-06-03] MEDS: VASOPRESSIN 50 UNITS in D5W 5% 247.5 ML IV SCH (13:05)
[2020-06-03 17:15] LABS: Potassium 4.3 mmol/L (3.5-5.1)
[2020-06-03 17:34] LABS: Albumin 1.2 g/dL (3.4-5.0); BUN/Creatinine Ratio 22.9; Bilirubin, Total 0.6 mg/dL (0.2-1.0); Total Protein 4.2 g/dL (6.4-8.2)
[2020-06-03] MEDS ORDERED: CALCIUM CHL 100MG/ML 1,000 MG in D5W 5% 100 ML IV ONE (19:00)
[2020-06-03 19:18] LABS: Urine Amorphous Crystal FEW /hpf (None Seen); Urine Bacteria FEW /hpf (None Seen); Urine Blood 3+ /uL (Negative); Urine Specific Gravity 1.027 (1.001-1.035); Urine WBC 3 /hpf (0 - 3)
[2020-06-03] MEDS: SODIUM CHLOR 0.9% PF (SALINE LOCK) 10ML VIAL/SYR IV SCH (22:00)
[2020-06-04] VITALS (100 sets, daily range): BP systolic 106–137; BP diastolic 52–74
[2020-06-04] MEDS ORDERED: AMIODARONE 450mg/250ml AE 250 ML IV SCH ×2 (01:15→07:15)
[2020-06-04] MEDS ORDERED: AMIODARONE HCL 150 MG in D5W 5% 100 ML IV ONE (01:15)
[2020-06-04] MEDS: PIPERACILLIN-TAZOB 3.375GM 100 ML IV SCH ×3 (02:55→18:48)
[2020-06-04] MEDS ORDERED: BUMETANIDE 2.5mg/10ml (0.25 mg/ml) INJ IV ONE (06:30)
[2020-06-04] MEDS: InsuLIN REG 1unit/0.01ml Soln (100units/ml) SC SCH ×4 (07:00→22:27)
[2020-06-04] MEDS: ACCU-CHEK COMFORT CURVE STRIP VI SCH ×4 (07:00→22:44)
[2020-06-04] MEDS: ALBUTEROL SULF 2.5 MG/0.5ML(0.5%) NEB SOLN NEB SCH ×2 (07:21→21:51)
[2020-06-04] MEDS: IPRATROPIUM BROM 0.5 MG/2.5ML INH SOL NEB SCH ×2 (07:21→21:51)
[2020-06-04] MEDS: BUDESONIDE (INHALATION) 0.5 MG/2 ML NEB NEB SCH ×2 (07:21→21:51)
[2020-06-04] MEDS: MIDAZOLAM DRIP 50 mg/50mL 50 ML IV SCH ×3 (09:10→21:08)
[2020-06-04] MEDS: INSULIN 70/30 1unit/0.01ml Susp (100units/ml) SC SCH ×2 (10:00→21:45)
[2020-06-04] MEDS: CHOLECALCIFEROL (VITD3) 2,000 UNIT CAP PO SCH (10:22)
[2020-06-04] MEDS: FUROSEMIDE 40 MG/4 ML VIAL IV SCH (10:23)
[2020-06-04] MEDS: ZINC SULFATE 220mg CAP or TAB PO SCH (10:23)
[2020-06-04] MEDS: DexAMETHasone SOD PHOS 10MG/1ML VIAL INJ IV SCH (10:23)
[2020-06-04] MEDS: PANTOPRAZOLE 40 MG/10 ML VIAL INJ IV SCH (10:23)
[2020-06-04] MEDS: ENOXAPARIN SOD 80 MG/0.8ML SYRINGE SC SCH ×2 (10:23→21:48)
[2020-06-04] MEDS: SODIUM BICARBONATE 50ML VIAL 75 ML in SOD CHL 0.45% 1,000 ML IV SCH ×2 (10:30→19:47)
[2020-06-04] MEDS: ASCORBIC ACID 1,000 MG TAB PO SCH (11:00)
[2020-06-04] MEDS: SODIUM CHLOR 0.9% PF (SALINE LOCK) 10ML VIAL/SYR IV SCH ×2 (11:00→21:44)
[2020-06-04] MEDS: PROPOFOL 100 ML IV SCH (11:40)
[2020-06-04] MEDS: VASOPRESSIN 50 UNITS in D5W 5% 247.5 ML IV SCH (12:15)
[2020-06-04] MEDS ORDERED: FUROSEMIDE 100 MG/10ML VIAL IV ONE (14:15)
[2020-06-04] MEDS ORDERED: FUROSEMIDE INJECTION 10 ML ONE (14:16)
[2020-06-04] MEDS: POTASSIUM EFFERVESENT TAB 25 MEQ GT SCH (14:24)
[2020-06-04] MEDS: fentaNYL Drip 2500mCg/250mlNS 250 ML IV SCH (19:10)
[2020-06-05] VITALS (99 sets, daily range): BP systolic 94–129; BP diastolic 43–70
[2020-06-05] MEDS: MIDAZOLAM DRIP 50 mg/50mL 50 ML IV SCH ×3 (00:59→13:10)
[2020-06-05] MEDS: SODIUM BICARBONATE 50ML VIAL 75 ML in SOD CHL 0.45% 1,000 ML IV SCH ×3 (02:20→20:33)
[2020-06-05] MEDS: PIPERACILLIN-TAZOB 3.375GM 100 ML IV SCH ×3 (02:20→18:19)
[2020-06-05 06:05] LABS: Hemoglobin 11.9 g/dL (13.5-17.5); Mean Corpuscular Hemoglobin 30.7 pg (28.0-32.0); Mean Corpuscular Hgb Conc. 33.2 g/dL (32.0-36.0); Mean Corpuscular Volume 92.6 fL (80.0-100.0); Platelet Count (auto) 74 10^3/uL (140-450); Red Blood Cells 3.89 10^6/uL (4.5-5.90); Red Cell Distribution Width 13.6 % (11.8-14.3); White Blood Cell 21.2 10^3/uL (4.4-10.8)
[2020-06-05 06:16] LABS: Basophils % (manual) 0 (0.0-2.0); Blast Cells 0; Eosinophils % (manual) 0 (0-7); Promyelocytes % 0; Reactive Lymphocytes 0
[2020-06-05] MEDS: InsuLIN REG 1unit/0.01ml Soln (100units/ml) SC SCH ×4 (06:35→20:34)
[2020-06-05] MEDS: ACCU-CHEK COMFORT CURVE STRIP VI SCH ×4 (06:35→20:35)
[2020-06-05] MEDS: NOREPINEPHRINE 8 MG/250ML KIT 250 ML IV SCH (06:37)
[2020-06-05] MEDS: fentaNYL Drip 2500mCg/250mlNS 250 ML IV SCH ×2 (06:41→20:37)
[2020-06-05 06:45] LABS: Potassium 5.2 mmol/L (3.5-5.1)
[2020-06-05 07:07] LABS: BUN/Creatinine Ratio 17.9
[2020-06-05 07:18] LABS: Calcium 5.7 mg/dL (8.5-10.1)
[2020-06-05 08:31] LABS: Band Neutrophils % (manual) 2; Lymphocytes % (manual) 5 (10.0-50.0); Metamyelocytes % 1; Monocytes % (manual) 2 (0-12); Myelocytes % 2
[2020-06-05] MEDS: BUDESONIDE (INHALATION) 0.5 MG/2 ML NEB NEB SCH ×2 (10:00→22:29)
[2020-06-05] MEDS: POTASSIUM EFFERVESENT TAB 25 MEQ GT SCH (10:00)
[2020-06-05] MEDS: ASCORBIC ACID 1,000 MG TAB PO SCH (10:30)
[2020-06-05] MEDS: ZINC SULFATE 220mg CAP or TAB PO SCH (10:30)
[2020-06-05] MEDS: DexAMETHasone SOD PHOS 10MG/1ML VIAL INJ IV SCH (10:30)
[2020-06-05] MEDS: INSULIN 70/30 1unit/0.01ml Susp (100units/ml) SC SCH ×2 (10:30→20:34)
[2020-06-05] MEDS: FUROSEMIDE 40 MG/4 ML VIAL IV SCH (10:30)
[2020-06-05] MEDS: PANTOPRAZOLE 40 MG/10 ML VIAL INJ IV SCH (10:30)
[2020-06-05] MEDS: SODIUM CHLOR 0.9% PF (SALINE LOCK) 10ML VIAL/SYR IV SCH ×2 (10:30→20:33)
[2020-06-05] MEDS: CHOLECALCIFEROL (VITD3) 2,000 UNIT CAP PO SCH (10:30)
[2020-06-05] MEDS: ENOXAPARIN SOD 80 MG/0.8ML SYRINGE SC SCH ×2 (10:30→20:35)
[2020-06-05] MEDS: PROPOFOL 100 ML IV SCH (11:40)
[2020-06-05] MEDS: VASOPRESSIN 50 UNITS in D5W 5% 247.5 ML IV SCH (12:15)
[2020-06-05] MEDS: ALBUTEROL SULF 2.5 MG/0.5ML(0.5%) NEB SOLN NEB SCH ×3 (14:21→22:29)
[2020-06-05] MEDS: IPRATROPIUM BROM 0.5 MG/2.5ML INH SOL NEB SCH ×3 (14:21→22:29)
[2020-06-06] VITALS (44 sets, daily range): BP systolic 56–120; BP diastolic 16–59
[2020-06-06] MEDS: PIPERACILLIN-TAZOB 3.375GM 100 ML IV SCH ×2 (02:01→09:54)
[2020-06-06] MEDS: SODIUM BICARBONATE 50ML VIAL 75 ML in SOD CHL 0.45% 1,000 ML IV SCH (05:08)
[2020-06-06 05:24] LABS: Hematocrit 34.9 % (41.0-53.0); Hemoglobin 11.6 g/dL (13.5-17.5); Mean Corpuscular Hemoglobin 30.6 pg (28.0-32.0); Mean Corpuscular Hgb Conc. 33.2 g/dL (32.0-36.0); Mean Corpuscular Volume 92.3 fL (80.0-100.0); Platelet Count (auto) 64 10^3/uL (140-450); Red Blood Cells 3.78 10^6/uL (4.5-5.90); Red Cell Distribution Width 13.7 % (11.8-14.3); White Blood Cell 20.1 10^3/uL (4.4-10.8)
[2020-06-06 05:35] LABS: Basophils % (manual) 0 (0.0-2.0); Blast Cells 0; Eosinophils % (manual) 0 (0-7); Myelocytes % 0; Promyelocytes % 0; Reactive Lymphocytes 0
[2020-06-06 05:50] LABS: BUN/Creatinine Ratio 18.5
[2020-06-06 05:53] LABS: Calcium 5.5 mg/dL (8.5-10.1); Potassium 6.2 mmol/L (3.5-5.1)
[2020-06-06] MEDS: IPRATROPIUM BROM 0.5 MG/2.5ML INH SOL NEB SCH (06:10)
[2020-06-06] MEDS: ALBUTEROL SULF 2.5 MG/0.5ML(0.5%) NEB SOLN NEB SCH (06:10)
[2020-06-06] MEDS ORDERED: InsuLIN REG 1unit/0.01ml Soln (100units/ml) IV ONE (06:15)
[2020-06-06] MEDS ORDERED: SODIUM ZIRCONIUM CYCL 10 GM PAK PO ONE (06:15)
[2020-06-06] MEDS ORDERED: SODIUM BICARBONATE 8.4 % INJ 50ML VIAL IV ONE (06:15)
[2020-06-06] MEDS ORDERED: DEXTROSE (50%) 50ML SYRG IV ONE (06:15)
[2020-06-06] MEDS ORDERED: CALCIUM GLUC 4.65meq/50ml D5AE 50 ML IV ONE (06:15)
[2020-06-06] MEDS: ACCU-CHEK COMFORT CURVE STRIP VI SCH (06:33)
[2020-06-06] MEDS: InsuLIN REG 1unit/0.01ml Soln (100units/ml) SC SCH (06:34)
[2020-06-06 06:38] LABS: Band Neutrophils % (manual) 3; Lymphocytes % (manual) 13 (10.0-50.0); Metamyelocytes % 1; Monocytes % (manual) 10 (0-12)
[2020-06-06] MEDS: PANTOPRAZOLE 40 MG/10 ML VIAL INJ IV SCH (09:54)
[2020-06-06] MEDS: ENOXAPARIN SOD 80 MG/0.8ML SYRINGE SC SCH (09:54)
[2020-06-06] MEDS: ZINC SULFATE 220mg CAP or TAB PO SCH (09:54)
[2020-06-06] MEDS: SODIUM CHLOR 0.9% PF (SALINE LOCK) 10ML VIAL/SYR IV SCH (09:54)
[2020-06-06] MEDS: CHOLECALCIFEROL (VITD3) 2,000 UNIT CAP PO SCH (09:55)
[2020-06-06] MEDS: ASCORBIC ACID 1,000 MG TAB PO SCH (09:55)
[2020-06-06] MEDS: FUROSEMIDE 40 MG/4 ML VIAL IV SCH (09:56)
[2020-06-06] MEDS: PHENYLEPHRINE IV 250 ML IV SCH (09:56)
[2020-06-06] MEDS: fentaNYL Drip 2500mCg/250mlNS 250 ML IV SCH (09:57)
[2020-06-06] MEDS: MIDAZOLAM DRIP 50 mg/50mL 50 ML IV SCH ×2 (09:58)
[2020-06-06] MEDS: DexAMETHasone SOD PHOS 10MG/1ML VIAL INJ IV SCH (11:00)
[2020-06-06] MEDS ORDERED: SODIUM BICARBONATE 50ML VIAL 150 ML in D5W 5% 1,000 ML IV SCH (11:00)
[2020-06-06] MEDS ORDERED: DOPamine 1600MCG/ML D5W 250 ML IV SCH (11:00)
[2020-06-06] MEDS ORDERED: OCTREOTIDE ACETATE 100 MCG/ML VL SUBCUT SCH (14:00)
[2020-06-06] MEDS ORDERED: PIPERACILLIN-TAZOB 2.25GM 50 ML IV SCH (18:00)
== END 2020-06-06 11:30 | disposition expired | DRG 208 ==
LOC: EDBD 15:21 → EDUNIT# 15:21 → ER 15:21 → TELE 15:22 → TELE-EAST 05-22 09:12 → DOU IN ICU 05-27 09:17 → ICU WEST 06-02 12:08
PROVIDERS: ADMIT Nurse Practitioner Family; ATTEND Internal Medicine
PROC: XW13325 Transfusion of Convalescent Plasma (Nonautologous) into Peripheral Vein, Percutaneous Approach, New Technology Group 5 (ICD-10-PCS; principal; 2020-05-24)
PROC: XW033E5 Introduction of Remdesivir Anti-infective into Peripheral Vein, Percutaneous Approach, New Technology Group 5 (ICD-10-PCS; 2020-05-24)
PROC: 5A09457 Assistance with Respiratory Ventilation, 24-96 Consecutive Hours, Continuous Positive Airway Pressure (ICD-10-PCS; 2020-05-26)
PROC: 5A09357 Assistance with Respiratory Ventilation, Less than 24 Consecutive Hours, Continuous Positive Airway Pressure (ICD-10-PCS; 2020-05-29)
PROC: 5A09357 Assistance with Respiratory Ventilation, Less than 24 Consecutive Hours, Continuous Positive Airway Pressure (ICD-10-PCS; 2020-05-30)
PROC: 5A09357 Assistance with Respiratory Ventilation, Less than 24 Consecutive Hours, Continuous Positive Airway Pressure (ICD-10-PCS; 2020-05-31)
PROC: 5A09357 Assistance with Respiratory Ventilation, Less than 24 Consecutive Hours, Continuous Positive Airway Pressure (ICD-10-PCS; 2020-06-01)
PROC: 5A1945Z Respiratory Ventilation, 24-96 Consecutive Hours (ICD-10-PCS; 2020-06-02)
PROC: 0BH17EZ Insertion of Endotracheal Airway into Trachea, Via Natural or Artificial Opening (ICD-10-PCS; 2020-06-02)
PROC: 0W9930Z Drainage of Right Pleural Cavity with Drainage Device, Percutaneous Approach (ICD-10-PCS; 2020-06-02)
PROC: 5A09357 Assistance with Respiratory Ventilation, Less than 24 Consecutive Hours, Continuous Positive Airway Pressure (ICD-10-PCS; 2020-06-02)
PROC: 02HV33Z Insertion of Infusion Device into Superior Vena Cava, Percutaneous Approach (ICD-10-PCS; 2020-06-03)
DX: U07.1 COVID-19 (principal); J12.89 Other viral pneumonia; J96.01 Acute respiratory failure with hypoxia; N17.0 Acute kidney failure with tubular necrosis; K72.00 Acute and subacute hepatic failure without coma; D68.69 Other thrombophilia; J93.9 Pneumothorax, unspecified; E87.5 Hyperkalemia; Z66 Do not resuscitate; E11.65 Type 2 diabetes mellitus with hyperglycemia; E78.5 Hyperlipidemia, unspecified; F17.200 Nicotine dependence, unspecified, uncomplicated; I10 Essential (primary) hypertension; I25.10 Atherosclerotic heart disease of native coronary artery without angina pectoris; Z95.1 Presence of aortocoronary bypass graft; Z90.49 Acquired absence of other specified parts of digestive tract
CPT/HCPCS: 36415; 36569; 36600; 70450; 71045; 71250; 80048; 80053; 81001; 82306; 82728; 82805; 82962; 83036; 83605; 83615; 83735; 83880; 84443; 84484; 85007; 85025; 85027; 85379; 85610; 85652; 85730; 86141; 86850; 86900; 86901; 87040; 87070; 87081; 87086; 87205; 87426; 93005; 93970; 94002; 94003; 94640; 94660; 96365; 96375; C9113; G0378; J0610; J1100; J1815; J1956; J2250; J2405; J2543; J3490; J7060